=== PATIENT | male | born 1985 | race Caucasian/White ===

== ENCOUNTER 2017-05-16 17:10 | Emergency (ER) | payer SELFPAY ==
[~2017-05-16] VITALS: Ht 170.2 cm; Wt 59.0 kg
[~2017-05-16 17:10] MED LIST: COGENTIN1 MG PO; HYDROCODON-ACE1 EAC7 PO; MOTRIN600 MG PO; NAPROSYN500 MG PO; NORCO 5/3251 TABLET PO; NORCO 7.5/321 TABLET PO
[2017-05-16 17:26] VITALS: BP 105/89
[2017-05-16] MEDS ORDERED: PERCOCET 5/31 TABLET PO (19:52)
== END 2017-05-16 20:22 | disposition home or self-care (01) ==
LOC: EME 17:10
DX: S92.001A Unspecified fracture of right calcaneus, initial encounter for closed fracture (principal); W22.09XA Striking against other stationary object, initial encounter
CPT/HCPCS: 73630; 99281; 99283